=== PATIENT | female | born 1950 | race Caucasian/White ===

== ENCOUNTER → 2018-09-22 | Outpatient (CLI) | payer MEDICARE ==
[2018-09-22 10:31] LABS: BLOOD UREA NITROGEN 17 MG/DL (7-18); CALCIUM LEVEL 9.4 MG/DL (8.8-10.2); CARBON DIOXIDE LEVEL 29 MEQ/L (21-32); CHLORIDE LEVEL 104 MEQ/L (98-107); CREATININE FOR GFR 0.94 MG/DL (0.55-1.30); GLOMERULAR FILTRATION RATE > 60.0 (>39); GLUCOSE, FASTING 105 MG/DL (70-100); SODIUM LEVEL 139 MEQ/L (136-145)
--- NOTE | 2018-09-22 12:23 | REP ---
CHEST X-RAY: Two views. HISTORY: Preoperative testing. No comparison chest x-ray. FINDINGS: The lungs are well inflated and clear. The pleural angles are sharp. Heart size is normal. Pulmonary vasculature is not increased. There are degenerative changes in the thoracic spine. There is an orthopedic anchor device in the humeral head on the right. IMPRESSION: No active disease. Electronically Signed by Pee Chin MD 09/22/2018 12:42 P
--- NOTE | 2018-09-22 12:39 | ECGEPIP ---
[facility] Test Date: 2018-09-22 Pat Name: GABBY ESTEVEZ Department: Room: - Gender: Female [employer] Developer: HERRERA : 1950 Requested By: Phillip Byers Order Number: [id number] Reading MD: Leta Hogue Measurements Intervals [place] Rate: 71 P: 75 DC: 195 QRS: 64 QRSD: 90 T: 79 QT: 388 QTc: 423 Interpretive Statements SINUS RHYTHM BORDERLINE 1ST DEGREE BLOCK LOW QRS VOLTAGE IN PRECORDIAL LEADS, ST & T-WAVE ABNORMALITY,NO PRIOR Electronically Signed on 09-22-2018 12:39:05 EDT by Leta Hogue
== END ==
LOC: M LAB 09:33
PROVIDERS: ATTEND Orthopaedic Surgery
DX: Z01.818 Encounter for other preprocedural examination (principal); I44.0 Atrioventricular block, first degree; M48.061 Spinal stenosis, lumbar region without neurogenic claudication; M43.16 Spondylolisthesis, lumbar region

== ENCOUNTER → 2018-10-17 | Outpatient (CLI) | payer MEDICARE ==
[~2018-10-17] MED LIST: ASPI81TA85 PO; ATOR1TAB19 PO; CALC600T60 PO; CLAR10CA3 PO; DEPA1TAB3 PO; DULO1CAP6 PO; FENO134C PO; FURO40TA2 PO; GABA-845 PO; LISI10TA2 PO; LISI10TA4 PO; MOBI4TAB PO; MULTCAP PO; NEXI20CA PO; VITA400T15 PO
--- NOTE | 2018-10-17 14:46 | REP ---
MR LUMBAR SPINE WITHOUT CONTRAST: HISTORY: Back and left hip pain. Decreased signal intensity on T2-weighted images is present in the L3-4 and L4-5 intervertebral discs. The discs are decreased in height. These findings are consistent with disc degeneration. There is no disc bulge or herniation at the L1-2 level. The L1 nerves exit the neural foramina without compression. A diffuse disc bulge is present at the L2-3 level. There is hypertrophy of the ligamenta flava and posterior articulating facets. These findings produce minimal central canal stenosis. The L2 nerves exit the neural foramina without compression. A diffuse disc bulge is present at the L3-4 level. There is hypertrophy of the ligamenta flava and posterior articulating facets. There are 4 mm of grade 1 spondylolisthesis of L3 on 4. These findings produce severe central canal stenosis. There is compression of the right L3 nerve in the neural foramen. The left L3 exits the neural foramen without compression. A diffuse disc bulge and small left paracentral and intraforaminal disc extrusion are present at the L4-5 level. There is hypertrophy of the ligamenta flava and posterior articulating facets. These findings produce moderate central canal stenosis. There is compression of the left L4 nerve in the neural foramen. The right L4 nerve exits the neural foramen without compression. A diffuse disc bulge is present at the L5-S1 level. There is no thecal sac or nerve compression. There is hypertrophy of the posterior articulating facets. The L5 nerves exit the neural foramina without compression. The conus medullaris is normal in appearance terminating at the level of the L1-2 intervertebral disc. Increased signal intensity on T2-weighted images is present in the endplates of the L3-5 vertebral bodies .This represents degenerative change. IMPRESSION: 1. Minimal central canal stenosis at the L2-3 level secondary to disc bulge, ligamentous, and facet hypertrophy. 2. Severe central canal stenosis at the L3-4 level secondary to disc bulge, ligamentous, and facet hypertrophy and grade 1 spondylolisthesis. There is compression of the right L3 nerve in the neural foramen. 3. Moderate central canal stenosis at the L4-5 level secondary to disc bulge, disc extrusion , ligamentous and facet hypertrophy. There is compression of left L4 nerve in the neural foramen. 4. Diffuse disc bulge at the L5-S1 level without thecal sac or nerve compression. Electronically Signed by Jay Davila MD 10/17/2018 02:53 P
== END ==
LOC: M RAD 13:22
PROVIDERS: ATTEND Orthopaedic Surgery
DX: M43.16 Spondylolisthesis, lumbar region (principal); M51.36 Other intervertebral disc degeneration, lumbar region; M47.896 Other spondylosis, lumbar region

== ENCOUNTER 2018-10-18 08:50 | Inpatient (IN) | payer MEDICARE ==
--- NOTE | 2018-10-12 17:24 | HPE ---
DATE OF PLANNED ADMISSION: 10/18/2018 Date of dictation: 10/12/2018 ATTENDING PHYSICIAN: Phillip Ramírez MD CHIEF COMPLAINT: Back pain, pain down her left leg. HISTORY This is a pleasant 68-year-old female patient with progressively worsening back pain and pain down her left leg, though she does get similar symptoms on the right side as well. She has had MRI and x-rays notable for spondylolisthesis at 3-4 and degenerative changes at 4-5. She has pain with weightbearing activities and activities of daily living. She has elected for surgery for continued symptoms. She has been through conservative management to include physical therapy and epidural steroid injections. She has consented by Dr. Ramírez for a unilateral laminectomy to the left side at L3-4 and L4-5 with posterior spinal fusion at L3, L4 and L5 with the use pedicle screws, iliac crest graft from the right or left hip and bone from the bone bank. Medical optimization not present for review. PAST MEDICAL HISTORY Current medical conditions include lumbar degenerative disk disease, lumbar spondylolisthesis, lumbar spinal stenosis, hypertension, anxiety, depression and elevated cholesterol. CURRENT MEDICATIONS - gabapentin 400 mg 1 tablet once per day - Lasix 40 mg 1 tablet once per day - atorvastatin 10 mg 1 tablet once per day - lisinopril / hydrochlorothiazide 10/12.5 mg 1 tablet once per day - duloxetine 60 mg 1 tablet once per day - fenofibric acid 135 mg 1 tablet once per day - vitamin D 400 units daily - daily aspirin 81 mg. She will discontinue that 5 days prior to surgery - calcium 600 mg 1 tablet daily She also takes [id number] Claritin and [id number]-qzcduim sleep aid, a daily multivitamin, Nexium 20 mg 1 tablet once per day and divalproex sodium 500 mg 1 tablet daily. She knows to stop the NSAIDs and aspirin 5 days prior to surgery. FAMILY HISTORY: Noncontributory. REVIEW OF SYSTEMS Denies fever, chills, chest pain, shortness breath or cough or difficulty breathing. Notes persistent back pain, pain mainly down the left leg, but also pain down the right leg. She has pain with walking, standing. She has make frequent position changes. Denies any recent upper respiratory infection (URI) or urinary tract infection (UTI) symptoms. Denies abdominal pain. PAST SURGICAL HISTORY: None. SOCIAL HISTORY: She does not smoke. She does not use alcohol. She is retired. PHYSICAL EXAMINATION: Reveals an alert well-nourished, well-developed female patient. She ambulates without assistive devices. The skin around the back is intact. No erythema, edema or ecchymosis. No step-offs or deviations. Straight leg raise testing is irritable bilaterally. Deep tendon reflexes are trace at the knees and ankles. Neck is supple without adenopathy or JVD. Lungs are clear to auscultation without rales or wheeze. Heart: Regular rate and rhythm. Abdomen: Bowel sounds are present. Height 59 inches, weight 223 pounds, temperature 96.4, blood pressure 136/80, respirations 14, pulse 62. Chest x-ray notes no acute cardiopulmonary disease process noted. EKG is sinus rhythm with first-degree AV block. Hemoglobin of 13.8, glucose 104, BUN 17, creatinine 0.94, sodium 139, potassium 4.0. IMPRESSION Lumbar spinal stenosis, lumbar degenerative disk disease, lumbar spondylolisthesis. PLAN She is consented by Dr. Ramírez for a left unilateral laminectomy L3-4, L4-5 with posterior fusion at L3-4 and L4-5 with the use of pedicle screws, iliac bone graft from either the right or the left hip as well as bone from the bone from the bone bank.
[~2018-10-18] VITALS: Ht 149.9 cm; Wt 99.7 kg
[~2018-10-18 08:50] MED LIST changes: +BACITRACIN PWD 50,000 UNITS VIAL As Ordered ONE; +BUPIVACAINE HCL 0.5% 10 ML VIAL As Ordered ONE; +BUPIVACAINE LIPOSOME/PF 1.3% 20ML VIAL (13.3MG/ML)(EXPAREL)(C9290 PER1MG) As Ordered ONE; +BUPIVACAINE/EPIN 0.25% 30 ML VIAL As Ordered ONE; +EPINEPHrine INJ 1 MG/ML 1ML AMP As Ordered ONE; +LIDOCAINE 1% MDV 20ML VIAL SQ PRN; -LISI10TA2 PO; +LR 1,000 ML IV ONE; +THROMBIN SOLN 20,000 UNITS KIT As Ordered ONE; +TRANEXAMIC ACID 100 MG/ML 10ML VIAL As Ordered ONE; +VANCOMYCIN HCL 500 MG/10 ML VIAL (J3370) As Ordered ONE
[2018-10-18] MEDS ORDERED: LISI10TA2 PO (11:46)
[2018-10-18] MEDS ORDERED: ceFAZolin SOD 1 GM in D5W MINI-BAG PLUS 50 ML IV ONE (12:00)
[2018-10-18] MEDS ORDERED: ONDANSETRON 4MG/2ML VIAL (J2405) As Ordered ONE (14:51)
[2018-10-18] MEDS ORDERED: LABETALOL HCL 100 MG/20 ML VIAL As Ordered ONE (14:51)
[2018-10-18] MEDS ORDERED: LIDOCAINE 2% INJ 100 MG/5 ML SDV (FOR ANES.) As Ordered ONE (14:51)
[2018-10-18] MEDS ORDERED: fentaNYL 250 MCG/5 ML INJECTION (J3010) As Ordered ONE (14:51)
[2018-10-18] MEDS ORDERED: SUGAMMADEX SODIUM 500 MG/5 ML VIAL (BRIDION) As Ordered ONE (14:51)
[2018-10-18] MEDS ORDERED: MIDAZOLAM INJ 2 MG/2 ML VIAL (J2250) As Ordered ONE (14:51)
[2018-10-18] MEDS ORDERED: PROPOFOL 200 MG/20 ML VIAL As Ordered ONE (14:51)
[2018-10-18] MEDS ORDERED: ROCURONIUM BROMIDE 50 MG/5 ML VIAL As Ordered ONE (14:51)
[2018-10-18] MEDS ORDERED: dexameTHASONE 4 MG/ML 1ML VIAL (J1100) As Ordered ONE (14:51)
[2018-10-18] MEDS ORDERED: METOCLOPRAMIDE INJ 10MG/2ML VIAL (J2765) As Ordered ONE ×2 (14:51→21:48)
[2018-10-18] MEDS ORDERED: DESFLURANE 240 ML INHALANT As Ordered ONE (15:28)
--- NOTE | 2018-10-18 15:57 | REP ---
INTRAOPERATIVE PORTABLE CROSSTABLE LATERAL VIEW OF THE SPINE: A surgical probe is seen posteriorly at the L5-S1 level. Electronically Signed by Jerome Deutsch DO 10/18/2018 05:15 P
[2018-10-18] MEDS ORDERED: fentaNYL 100 MCG/2 ML INJECTION (J3010) As Ordered ONE ×2 (18:38→19:56)
[2018-10-18] MEDS ORDERED: ceFAZolin 2 GM/D5W 50 ML IV BAG (J0690 PER 500MG) As Ordered ONE (19:02)
[2018-10-18] MEDS ORDERED: ceFAZolin 1GM INJ (J0690 PER 500MG) As Ordered ONE (19:02)
[2018-10-18] MEDS ORDERED: PHENYLephrine HCL 500 MCG/5 ML (100MCG/ML) SYRINGE (J2370) As Ordered ONE (19:36)
[2018-10-18] MEDS ORDERED: ACETAMINOPHEN 1000MG 100ML IV BTL (OFIRMEV) (J0131 PER 10MG) As Ordered ONE (20:43)
[2018-10-18] MEDS ORDERED: ONDANSETRON 4MG/2ML VIAL (J2405) IV PRN ×2 (21:00→21:45)
[2018-10-18] MEDS ORDERED: fentaNYL 100 MCG/2 ML INJECTION (J3010) IV PRN (21:00)
[2018-10-18] MEDS ORDERED: PERCOCET 5MG/325MG TAB PO PRN ×2 (21:00→21:45)
[2018-10-18] MEDS ORDERED: LR 1,000 ML IV SCH (21:00)
[2018-10-18] MEDS ORDERED: METOCLOPRAMIDE INJ 10MG/2ML VIAL (J2765) IV PRN (21:30)
[2018-10-18] MEDS ORDERED: MORPHINE 4 MG/ML 1ML VIAL/SYRINGE (J2270) IV PRN (21:45)
[2018-10-18] MEDS ORDERED: ACETAMINOPHEN TAB 650MG DOSE (2X325MG) PO PRN (21:45)
[2018-10-18] MEDS ORDERED: CYCLOBENZAPRINE 10 MG TAB PO PRN (21:45)
[2018-10-18 22:40] VITALS: BP 154/90
[2018-10-18 23:10] VITALS: BP 131/79
[2018-10-18] MEDS: PERCOCET 5MG/325MG TAB PO PRN (23:28)
[2018-10-18] MEDS: GABAPENTIN 400 MG CAP PO SCH (23:30)
[2018-10-19] VITALS (9 sets, daily range): BP systolic 108–147; BP diastolic 63–81
--- NOTE | 2018-10-19 00:36 | CR.PDOC ---
General Date of Consultation: Oct 18, 2018 Consultation REASON FOR CONSULTATION/CHIEF COMPLAINT: perioperative management HISTORY OF PRESENT ILLNESS: 68f copd, htn, paulo, gerd, glaucoma who presents for an elective lumbar laminectomy with posterior fusion. Pt had procedure today with an EBL of 500ccs. Seen in bed afterwards, complaining of incisional site pain. ALLERGIES: Please see below. HOME MEDICATIONS: Please see below. SOCIAL HISTORY: Tobacco use:former ETOH: denies Illicit drug use: denies REVIEW OF SYSTEMS: a full ROS was performed and was negative except as documented in hpi PHYSICAL EXAMINATION: VITAL SIGNS: Please see below. GENERAL APPEARANCE: alert, no apparent distress HEENT: normocephalic, atraumatic, PERRL, EOMI RESPIRATORY: clear to auscultation with good air movement CARDIOVASCULAR: S1S2 RRR no mrg ABDOMEN: soft, nontender, nondistended EXTREMITIES: no edema NEUROLOGICAL: no focal deficits PSYCHIATRIC: nl mood and affect, oriented x3 LABORATORY DATA: Please see below. ASSESSMENT/PLAN: 68f s/p lumbar laminectomy incisional site pain percocet as per ortho PAULO continue home cpap GERD continue ppi HTN continue lisinopril Vital Signs/I&O Vital Signs Date Time Temp Pulse Resp B/P (MAP) Pulse Ox O2 Delivery O2 Flow Rate FiO2 10/18/18 23:28 18 96 10/18/18 22:29 98.1 105 142/57 (85) 3 I&O- Last 24 Hours up to 6 AM 10/19/18 06:00 Intake Total 3660 ml Output Total 952 ml Balance 2708 ml Allergies Coded Allergies: No Known Allergies (Unverified , 10/18/18) Home Medications Scheduled Aspirin (Aspir 81) 81 Mg Tablet.dr, 81 MG PO DAILY, #30 (Reported) Atorvastatin Calcium (Atorvastatin Calcium) 10 Mg Tablet, 10 MG PO DAILY, (Reported) Calcium Carbonate (Calcium) 600 Mg Tablet, 600 MG PO DAILY, (Reported) Divalproex Sodium (Depakote) 500 Mg Tablet.dr, 500 MG PO DAILY, (Reported) Duloxetine Hcl (Duloxetine HCl) 60 Mg Capsule.dr, 60 MG PO DAILY, (Reported) Ergocalciferol (Vitamin D2) (Vitamin D2) 400 Unit Tablet, 400 UNIT PO DAILY, (Reported) Esomeprazole Magnesium (Nexium) 20 Mg Capsule.dr, 20 MG PO DAILY, (Reported) Fenofibrate,Micronized (Fenofibrate) 134 Mg Capsule, 134 MG PO DAILY, (Reported) Gabapentin (Gabapentin) 400 Mg Capsule, 400 MG PO BID, (Reported) Lisinopril/Hydrochlorothiazide (Lisinopril-Hctz 10-12.5 mg Tab) 1 Each Tablet, 1 TAB PO DAILY, (Reported) Loratadine (Claritin) 10 Mg Capsule, 10 MG PO DAILY, (Reported) Meloxicam (Mobic) 7.5 Mg Tablet, 7.5 MG PO DAILY, #30 (Reported) WITH FOOD Multivitamin (Multivitamins) 1 Each Capsule, 1 CAP PO DAILY, (Reported) STEPHANIE RODRIGUEZ MD Oct 19, 2018 00:36
[2018-10-19] MEDS: D5W/LR 1,000 ML IV SCH ×2 (00:56→08:49)
[2018-10-19] MEDS: PERCOCET 5MG/325MG TAB PO PRN ×4 (05:41→21:44)
[2018-10-19] MEDS: METAMUCIL (PSYLLIUM) PACKET PO SCH (08:48)
[2018-10-19] MEDS: PANTOPRAZOLE 20 MG TAB PO SCH (08:48)
[2018-10-19] MEDS: DIVALPROEX 500 MG TAB PO SCH (08:48)
[2018-10-19] MEDS: LISINOPRIL 10 MG TAB PO SCH (08:48)
[2018-10-19] MEDS: GABAPENTIN 400 MG CAP PO SCH ×3 (08:48→20:33)
[2018-10-19] MEDS: DULoxetine 30 MG CAP (CYMBALTA) PO SCH (08:49)
[2018-10-19] MEDS ORDERED: ATORVASTATIN 10 MG TAB PO SCH (21:00)
--- NOTE | 2018-10-19 21:49 | REP ---
C-ARM VIEWS LOWER LUMBAR SPINE: Three C-Arm views lower lumbar spine performed. Posterior rods and pedicle screws are placed at L3, L4 and L5. Structures appear grossly well aligned. 3 minutes 2 seconds fluoroscopy time utilized. Electronically Signed by Narinder Branham MD 10/20/2018 10:07 A
[2018-10-20 06:00] VITALS: BP 118/67
[2018-10-20 08:32] VITALS: BP 118/67
[2018-10-20] MEDS: LISINOPRIL 10 MG TAB PO SCH (08:32)
[2018-10-20] MEDS: PERCOCET 5MG/325MG TAB PO PRN (08:32)
[2018-10-20] MEDS: GABAPENTIN 400 MG CAP PO SCH (08:33)
[2018-10-20] MEDS: METAMUCIL (PSYLLIUM) PACKET PO SCH (08:33)
[2018-10-20] MEDS: DULoxetine 30 MG CAP (CYMBALTA) PO SCH (08:34)
[2018-10-20] MEDS: PANTOPRAZOLE 20 MG TAB PO SCH (08:34)
[2018-10-20] MEDS: DIVALPROEX 500 MG TAB PO SCH (08:34)
--- NOTE | 2018-10-21 18:21 | RO ---
DATE OF PROCEDURE: 10/18/2018 PREOPERATIVE DIAGNOSIS: Lumbar spondylolisthesis at L3-4 and lumbar spinal stenosis and spondylosis at L3-4 and L4-5 Super morbid obesity is an additional diagnosis. POSTOPERATIVE DIAGNOSIS: Lumbar spondylolisthesis at L3-4 and lumbar spinal stenosis and spondylosis at L3-4 and L4-5 Super morbid obesity is an additional diagnosis. PROCEDURE PERFORMED: Lumbar laminectomy and posterior spinal fusion, specifics subcomponents of the procedure include L3 left unilateral laminectomy for decompression of the thecal sac and exiting nerve root, L4 left unilateral laminectomy for decompressing the thecal sac and traversing nerve root, L5 left unilateral laminectomy for decompression of the thecal sac and nerve roots. L3-4 posterior spinal fusion/intertransverse arthrodesis, L4-5 posterior spinal fusion/intertransverse arthrodesis additional level, posterior segmental instrumentation L3, L4 and L5 bilateral pedicle screws and connecting nick, right iliac crest bone graft harvested and placed. SURGEON: Dr. Phillip Ramírez TELEVISION REPORTER: DESMOND Franklin ANESTHESIA: General endotracheal. ESTIMATED BLOOD LOSS: Less than 400 mL, replaced with crystalloid. COMPONENTS USED: Include the Toxic Attireium 6.5/quarter-inch system, 40 and 45 mm screws, 8 mm diameter screws utilized at the L5 level, 7 mm diameter screws utilized at L4 and L3. Next, appropriate connecting nick and end caps. INDICATIONS: Palak is a 68-year-old female with neurogenic claudication and severe back pain that is intractable and has failed conservative management and elects for operative intervention. Consent reviewed in detail with the patient including a charbel discussion of the pathology involved, the procedure proposed, alternatives including doing nothing, and risks including but not limited to pain, failure, paralysis, infection, need for more surgery, blood clots, nerve injury and other issues. The patient agrees to proceed. Next, 22 modifier will be appended to this procedure because the patient in addition to her lumbar spinal stenosis with neurogenic claudication and spondylolisthesis also has significant super morbid obesity with a body mass index of greater than 45. This necessitated approximately 100% more time than typical to do the operative procedure, additional time in positioning and difficulty in positioning and accomplishing the procedure. We required to use extra long instruments and deal with other issues because of that problem. DESCRIPTION OF PROCEDURE: Operative Course: Identified in the holding area, site and side verified, brought to the operating room. Once anesthesia was administered, positioned in the prone position on the Reece frame for exposure of the lumbar spine. This took additional time and padding to accomplish to ensure that positioning was safe. Next, once this was accomplished and I and the business dean were comfortable with the patient's positioning, she was then sterilely prepped and draped in the usual fashion for exposure of the lumbar spine. Next, midline was anesthetized with 0.25% Marcaine with epinephrine by Mr. Dolan. Time-out was accomplished. Next, beginning the surgical procedure, I utilized 3.5 loupe magnification for the first portion of the procedure as well as a headlamp. We also did use the operating microscope at different portions of the procedure. The incision was made with a 10 blade knife, developed down through skin and subcuticular tissues. Extra large cerebellar retractors were utilized to assist with the dissection. Bovie cautery was utilized for hemostasis. We eventually encountered the posterior lumbar fascia. I divided the posterior lumbar fascia to the left of midline, retained the midline and developed the dissection down to the posterior lamina of L5. Once this was exposed on the left side, I drilled a divot in the L5 lamina using the high-speed bur, placed the Zamarripa-Mick and obtained a cross-table lateral x-ray to verify our level at L5. Next, once this was accomplished, I develop the dissection superiorly exposing L4 and L3 and then Mr. Dolan helped with a Rasta retractor to expose out to the transverse processes with me using the Bovie cautery. Once the left side was exposed out to the transverse processes of L3, L4 and L5, attention was turned to the right side which was exposed in a similar fashion based on our contralateral side and also out to the transverse processes on the right of L3, L4 and L5. Next, once this portion of the procedure was accomplished we irrigated with antibiotic impregnated saline solution, I instilled TXA solution into the right defect for hemostasis properties along with a lap pad. Next, at this stage my loupe and headlamp magnification were removed and removed the operating microscope, which was sterilely draped into the field for further use. Next, I debrided the posterior lamina of L3, L4 and L5 using Leksells as well as the facets at L3-L4 and L4-L5 using Leksells and actually this was done bilaterally, and this bone graft was retained. Next, I utilized the high-speed bur under the microscope. Mr. Dolan looked through oculars on the right, I through oculars on the left. I implemented a left unilateral laminectomy beginning at L5 extending superiorly through the lamina of L5, through the lamina of L4, and through the inferior lamina of L3 to the bare area of L3. Once this was accomplished, I utilized curved curettes to elevate ligamentum flavum. The ligamentum flavum was more hypertrophied than I anticipated, especially at L4-5 but also at L3-4. Once this was removed from the midline, I decompressed the subarticular spaces at L3-4, and L4-5. I explored the contralateral side with a Zamarripa-Mick and a curette. There did not seem to be dramatic stenotic findings on the contralateral side over the horizon. Next, irrigation was accomplished at the midline. I placed thrombin Gelfoam along the lateral recess for hemostasis, and I did use some bone wax. Next, once this was accomplished, we turned our attention to the right iliac crest. I made a separate fascial incision, and we obtained iliac crest from the right side, morselized for use as bone graft. Once this was accomplished, we closed over thrombin Gelfoam with interrupted stitch. Next, at this stage, the operating microscope was moved back from the procedure. We re-donned lead gowns and sterile apparel as well as the headlamp and loupses. Next, placement of pedicle screws was accomplished using fluoroscopy and Mr. Dolan and I alternated sides for different portions of this portion of the case. We put pedicle screws on the right side first beginning at L3. I drilled divots in the mammillary processes of L3, L4, and L5. We obtained imaging studies that confirmed that that was the lateral border of the pedicles. I cannulated the L3 pedicle using the Lenke pedicle finder. We verified position of the pedicle finder in AP and lateral fluoroscopy and also using a ball-tip wire. She had large pedicles. We tapped with a 6.5 tap and again verified with the ball-tip wire for pedicle integrity. I sized and placed the 45 x 7.0 screw at the L3 level. Next, L4 pedicle was cannulated, tested and pedicle screw placed in a similar fashion, L5 pedicle, this was a larger pedicle, we tapped with the 7.0 tap, we placed an 8.0 screw at that level, believe it was 40 mm. Next, once this was all accomplished, attention was turned to the contralateral left side where pedicle screws were placed and tested in a similar fashion, including using the ball-tip wire as well as the AP and lateral fluoroscopy on each screw. Once the screws were placed bilaterally, we then pulled with the Rasta retractor, decorticated the transverse processes and placed bone graft, then morselized iliac crest directly over the transverse processes and the lateral aspect of the facets followed by placement of some of the local bone, followed by placement of demineralized bone matrix putty and donor bone. This was accomplished bilaterally. Once this was accomplished, we placed the connecting rods bilaterally, measured for a 65 connecting nick, placed end caps. We set the L4 and L5 end caps and locked this level, and then we pulled the L3 anterolisthesis back about 4 mm, reducing it effectively. Next, once this was accomplished, I slightly distracted across L4-5 using the distractor device and then locked using the torque-counter torque device. Once this was accomplished, we placed the remaining bone graft along the lamina on the right side and facet complexes. Next, irrigation was accomplished before we did that, we placed vancomycin crystals in the caps of the pedicle screw heads. Next we inspected the thecal sac. No appreciation of bleeding or cerebrospinal fluid (CSF) leak. Next, once this was accomplished, because of the patient's large body habitus, I did place a 7 flat drain exiting superolaterally to the left side to make sure we did not develop an epidural hematoma. Next, interrupted stitch followed by Stratafix was utilized to close the lumbar fascia. Next, deep dermis and Kanika's fascia were closed with interrupted stitches in layer fashion. Prineo dressing was placed on the skin. Separate dressing was placed over the drain exiting outside the Prineo field, Next, once this was accomplished, we were able to log roll the patient to the hospital bed, extubate and move to recovery room in good condition. For further details, please refer to the medical record. Again, please note that this case took significantly additional time and required significantly increased effort and use of special tools because of the patient's quite significant degree of obesity, which is a BMI of 45 plus.
== END 2018-10-20 12:50 | disposition home or self-care (01) | DRG 454 ==
LOC: M OR 11:12 → M MS5PR 22:45
PROVIDERS: ADMIT Orthopaedic Surgery; ATTEND Orthopaedic Surgery
PROC: 0SG00AJ Fusion of Lumbar Vertebral Joint with Interbody Fusion Device, Posterior Approach, Anterior Column, Open Approach (ICD-10-PCS; 2018-10-18)
PROC: 0QB20ZZ Excision of Right Pelvic Bone, Open Approach (ICD-10-PCS; 2018-10-18)
PROC: 0SG0071 Fusion of Lumbar Vertebral Joint with Autologous Tissue Substitute, Posterior Approach, Posterior Column, Open Approach (ICD-10-PCS; principal; 2018-10-18 13:00)
DX: M43.16 Spondylolisthesis, lumbar region (principal); Z68.42 Body mass index [BMI] 45.0-49.9, adult; M51.36 Other intervertebral disc degeneration, lumbar region; M47.896 Other spondylosis, lumbar region; E66.01 Morbid (severe) obesity due to excess calories; I10 Essential (primary) hypertension; F41.9 Anxiety disorder, unspecified; F32.9 Major depressive disorder, single episode, unspecified; Z79.899 Other long term (current) drug therapy; Z79.82 Long term (current) use of aspirin; I44.0 Atrioventricular block, first degree; J44.9 Chronic obstructive pulmonary disease, unspecified; G47.33 Obstructive sleep apnea (adult) (pediatric); K21.9 Gastro-esophageal reflux disease without esophagitis; H40.9 Unspecified glaucoma